=== PATIENT | female | born 2000 | race Caucasian/White ===

== ENCOUNTER → 2023-08-17 17:17 | Outpatient (REF) | payer OTHER, SELFPAY | LOC: HWRAD 17:17 | PROVIDERS: ATTENDING PHYSICIAN Physician Assistant | DX: M54.50 Low back pain, unspecified (principal) | CPT/HCPCS: 72110 ==

== ENCOUNTER → 2023-11-05 06:33 | Outpatient (REF) | payer OTHER, MEDICARE, SELFPAY | LOC: MRI 06:33 | PROVIDERS: ATTENDING PHYSICIAN Physician Assistant | DX: M54.50 Low back pain, unspecified (principal); S20.229A Contusion of unspecified back wall of thorax, initial encounter | CPT/HCPCS: 72146 ==

== ENCOUNTER → 2023-11-10 12:51 | Outpatient (REF) | payer OTHER, MEDICARE, SELFPAY | LOC: RAD 12:51 | PROVIDERS: ATTENDING PHYSICIAN Physician Assistant | DX: D18.03 Hemangioma of intra-abdominal structures (principal) | CPT/HCPCS: 76700 ==

== ENCOUNTER → 2025-03-16 10:43 | Outpatient (REF) | payer OTHER, MEDICARE, SELFPAY | LOC: RCS 10:43 | PROVIDERS: ATTENDING PHYSICIAN Internal Medicine; FAMILY PHYSICIAN Physician Assistant | DX: C91.01 Acute lymphoblastic leukemia, in remission (principal) | CPT/HCPCS: 93306 ==

== ENCOUNTER → 2025-03-27 13:51 | Outpatient (REF) | payer MEDICARE, OTHER, SELFPAY | LOC: HWRAD 13:51 | PROVIDERS: ATTENDING PHYSICIAN Family Medicine | DX: S69.91XA Unspecified injury of right wrist, hand and finger(s), initial encounter (principal) | CPT/HCPCS: 73130 ==

== ENCOUNTER → 2025-06-06 06:47 | Outpatient (REF) | payer OTHER, MEDICARE, SELFPAY | LOC: PAVMRI 06:47 | PROVIDERS: ATTENDING PHYSICIAN Orthopaedic Surgery Hand Surgery | DX: D16.9 Benign neoplasm of bone and articular cartilage, unspecified (principal); M79.641 Pain in right hand; S62.354A Nondisplaced fracture of shaft of fourth metacarpal bone, right hand, initial encounter for closed fracture | CPT/HCPCS: 73218 ==